=== PATIENT | female | born 1955 | race Caucasian/White ===

== ENCOUNTER 2018-12-15 22:19 | Inpatient (IN) | payer OTHER ==
[~2018-12-15] VITALS: Ht 157.5 cm; Wt 81.6 kg
[2018-12-16] MEDS ORDERED: PROZAC 20 MG20 MG (00:20)
[2018-12-16] MEDS ORDERED: XANAX 0.25 MG0.25 MG PO (00:22)
[2018-12-16] MEDS ORDERED: LEVOTHYROXINE175 MCG PO (00:25)
[2018-12-16] MEDS ORDERED: PROTONIX40 M1 PO (00:26)
[2018-12-16] MEDS ORDERED: LIPITOR10 MG PO (00:28)
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
[2018-12-16 00:43] VITALS: BP 154/94
[2018-12-16 07:55] VITALS: BP 134/93
[2018-12-16 11:33] VITALS: BP 134/93
--- NOTE | 2018-12-16 11:44 | NUR ---
ASSUMED CARE AT 0715 THIS MORNING. PT. UP ON UNIT FOR MEALS. COMPLIANT WITH MEDICATIONS. SAT ON UNIT AFTER BREAKFAST. REPORTED TO OT THAT SHE WAS THINKING OF WAYS TO HARM HERSELF AFTER SHE LEFT THE HOSPITAL SETTING. SHE WAS NON-SPECIFIC. SHE STATED SHE WAS JUST THINKING ABOUT THIS. SHE THEN WENT AND LAYED DOWN IN BED AND WOULD NOT/DID NOT DISCUSS THIS FURTHER. THIS SUPERIOR COURT CLERK WENT INTO THE PT'S ROOM TO DISCUSS THIS BUT THE PT. EYES CLOSED, RESPIRATIONS EVEN. ASSUMED PT. IS ASLEEP.
[2018-12-16 22:23] VITALS: BP 143/90
[2018-12-16 23:30] VITALS: BP 143/90
--- NOTE | 2018-12-17 05:37 | NUR ---
ASSUMED CARE @ 1900. AT THAT TIME PT WAS IN BED, SNORING, EYES CLOSED. AWAKENED PT TO ASSESS AND PROVIDE 2100 MEDS @ 21:45. DENIES SI, HI AND REPORTS THAT SHE HAS A WADE AND TYLENOL 650 PROVIDED @ 22:30. WILL CONTINUE TO MONITOR.
[2018-12-17 07:40] VITALS: BP 162/111
[2018-12-17 09:23] VITALS: BP 167/102
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
--- NOTE | 2018-12-17 14:42 | NUR ---
ANNY called pt's daughter Shira Fajardo [phone] Paez present. provided an update and recomendations for D/C . Daughter provided more HX and her concerns about how her mother had lied to her about not being SI prior to her attempt, and the pending loss of her cat at home who is likely going to this week. ANNY and dght spoke after excused himself and Sw educated her on the role of therapy, medication changes, and the PHP. Dght admits that pt needs to get out, and Anny provided suggestions. Pt has a lifelong HSX of SI, and is seeking relief from her emotional pain. Anny encourage ddght to get her own support, as this behavior is not sustainable. Pt's dght seemed grateful for the report provided by and ANNY . This information is available for weekday SW to follow up.
[2018-12-17 21:00] VITALS: BP 145/92
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
[2018-12-18 15:31] VITALS: BP 157/95
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
[2018-12-18 19:43] VITALS: BP 124/85
--- NOTE | 2018-12-18 19:56 | NUR ---
ASSUMED CARE OF THE PT AT 191 PM. ALERT ET ORIENTED X 2. MAKES NEEDS KNOWN. HEART RATE REGULAR., LUNGS CLEAR BILATERALLY, RESP., EVEN, AND UNLABORED. +BS HEARD IN ALL 4 QUADRANTS. DENIES SI AND HI. DENIES ANXIETY AND DEPRESSION. DENIES A/V HALLUNICATIONS. REMAINS ON 12 MINUTE CHECKS FOR HER SAFETY.
--- NOTE | 2018-12-19 02:14 | NUR ---
THE PT HAS BEEN SLEEPING MOST OF THE NOC SHIFT. NO C/O OF PAIN DURING THE TIME. REMAINS ON 12 MINUTE CHECKS FOR HER SAFETY.
--- NOTE | 2018-12-19 04:01 | NUR ---
THE PT GOT UP AT 0330 AM AND SAT DOWN IN THE DAYROOM, THE PT CONTINUES TO HAVE A FLAT AFFECT, THIS SEAFOOD TECHNOLOGY SPECIALIST ASKED THE PT IF SHE NEEDED ANYTHING AND DENIED NEEDING ANYTHING, OFFERED WATER AND A BLANKET, WHICH SHE REFUSED.
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
--- NOTE | 2018-12-19 06:33 | NUR ---
THE PT SLEPT 10 HOURS LAST NIGHT.
[2018-12-19 07:50] VITALS: BP 130/82
--- NOTE | 2018-12-19 09:16 | NUR ---
0730: Report from noc shift, care assumed. Ambulatory in halls, gait steady, dressed neatly in clothes. To DR for a.m. meal, feeds self, appetite good, denies pain. Report having nightmares during the noc, aware they are not real but are frightening. Takes meds whole w/o difficulty.
[2018-12-19 19:29] VITALS: BP 102/59
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
--- NOTE | 2018-12-19 20:46 | NUR ---
ASSUMED CARE OF THE PT AT 1915PM. ALERT ET ORIENTED X 3. MAKES NEEDS KNOWN. WALKS WITH A STEADY GAIT. HEART RATE REGULAR, LUNGS CLEAR BILATERALLY, RESP., EVEN, AND UNLABORED. +BS HEARD IN ALL 4 QUADRANTS., STATED THAT SHE HAD A BM TODAY. DENIES ANXIETY AND DEPRESSION. DENIES A/V HALLUNICATIONS. STATED THAT SHE HAD NIGHTMARES LAST NIGHT, THE PHYSICIAN STARTED HER ON A NEW MEDICATION FOR THE NIGHTMARES. REMAINS ON 12 MINUTE CHECKS FOR HER SAFETY.
--- NOTE | 2018-12-20 03:07 | NUR ---
THE PT HAS BEEN SLEEPING MOST OF THE NOC SHIFT.
--- NOTE | 2018-12-20 05:59 | NUR ---
THE PT SLEPT 9 HOURS LAST NIGHT.
--- NOTE | 2018-12-20 09:03 | NUR ---
[id number]: Report from [facility] shift, care assumed. Ambulatory to DR, gait steady, speech clear, appropriate for age. Feeds self a.m. meal, appetite good, consumes 100%, takes meds whole w/o difficulty. Denies pain @ this time, last BM 12/19. Denies "nightmares" during the noc, continues on new HS dose of Prazosin 1mg po, no adverse reactions noted. Attending group with RT supervising. Pt cooperative with staff, and interacts with others well.
[2018-12-20 11:20] VITALS: BP 126/79
--- NOTE | 2018-12-20 11:21 | NUR ---
Patient Name: KANIKA CHURCHILL Admission Date: 12/15/18 DISCHARGE PLAN: Pt will discharge home. Care Assessment: Pt was assessed by Dr. Paez, and was diagnosed with Severe Major Depression Disorder. Level II Assessment: None Transportation: Pt will be discharge through [facility]. Special Instructions/Notes: schedule outpatient therapy service through [facility]. Pt will be seen a psychiatrist on December 25, 2018 at 10:00 am. DISCHARGE TO FACILITY: Facility: Phone: Fax: Address: [address] [place] [address] [id number] Contact Name: PCP: Pt Primary Care doctor Psychiatrist: [facility] [address] [place] [id number]
[2018-12-20] MEDS ORDERED: PRAZOSIN HCL1 MG PO (12:17)
[2018-12-20] MEDS ORDERED: CATAPRES0.1 MG PO (12:17)
[2018-12-20] MEDS ORDERED: OXCARBAZEPINE300 MG PO (12:18)
[2018-12-20] MEDS ORDERED: MOBIC7.5 M1 PO (12:18)
--- NOTE | 2018-12-21 21:24 | D ---
[facility] [place] [address] DISCHARGE SUMMARY Name: KANIKA CHURCHILL Room #: 527A-A [facility] IN M.R.#: [id number] Admission: 12/15/18 ������������������ Attend Phys: Frank Paez DO Discharge: 12/20/18 ������������������ Date of : 53 Report #: [id number] THIS REPORT FOR: //name// CC: Frank Bonilla DATE OF SERVICE: 12/20/2018 ATTENDING PHYSICIAN: Frank Paez DO. RADIAL ARM SAW OPERATOR: Frank Cano MD MEDICAL COMORBIDITIES: GERD, hypothyroidism and irritable bowel syndrome. DISCHARGE DIAGNOSES: Major depressive disorder, recurrent, severe degree and probable posttraumatic stress disorder though not widely explored this admission. DISCHARGE MEDICATIONS: As follows: Fluoxetine 60 mg oral daily, levothyroxine 175 mcg oral daily hypothyroidism , pantoprazole 40 mg oral daily GERD , atorvastatin 10 mg oral daily hyperlipidemia, prazosin 1 mg p.o. at bedtime for nightmares, Trileptal 150 mg twice daily, meloxicam 7.5 mg oral daily for arthritis and clonidine 0.2 mg p.o. bid. DISCHARGE INSTRUCTIONS: The patient will need to [facility] with a [facility]. PCP is Dr. Bonilla who practices in [place], the patient will arrange an appointment. DIET: Regular. LABORATORIES THIS ADMISSION: None. PHYSICAL EXAMINATION: VITAL SIGNS: On the day of discharge, temperature is 36.3, pulse 63, respirations 19 and BP 136/79. MUSCULOSKELETAL: Normal gait and station. MENTAL STATUS EXAMINATION: This is a well-developed, well-nourished female appearing stated age. Attention intact, concentration intact, speech is normal rate and normal tone. Thought process is linear and goal oriented. Thought content, focussed on discharge challenges ahead and future oriented. Denied auditory, visual or tactile hallucination. Denied suicidal intent or plan. Denied hopelessness or helplessness. Denied homicidal intent or plan. Memory not formally tested today. Insight is fair. Judgment is fair. [facility] [address] [place] [address] DISCHARGE SUMMARY Name: KANIKA CHURCHILL Room #: [address] [place] [address] IN M.R.#: [id number] Admission: 12/15/18 ������������������ Attend Phys: Frank Paez DO Discharge: 12/20/18 ������������������ Date of : 53 Report #: [id number] knowledge is average range. Prognosis is fair. REASON FOR ADMISSION: Suicidal ideation and suicidal gesture. HOSPITAL COURSE: The patient's mood improved. Trileptal started at 150 mg twice daily for mood stabilization. The patient was emphatic on remaining on her Prozac regimen 60 mg p.o. daily. Contact was made with her daughter and reiterated this occurs every 4-1/2 to 5 years. I had previously taken care of this patient at [facility] in 06/2014 and the reasons for admission were similar. We had tried to get the patient in a PHP at time of discharge; however, her insurance did not have one they anticipated in. prognosis: guarded ��������������������������������������������� <ELECTRONICALLY SIGNED> ���������������������������������������� By: Frank Paez, ��������������������������������������������� 12/21/18 [id number] Frank Paez, /nt
== END 2018-12-20 12:40 | disposition home or self-care (01) | DRG 885 ==
LOC: SBH 22:19
PROVIDERS: ADMIT Psychiatry & Neurology Psychiatry
DX: F33.2 Major depressive disorder, recurrent severe without psychotic features (principal); K21.9 Gastro-esophageal reflux disease without esophagitis; E03.9 Hypothyroidism, unspecified; F43.12 Post-traumatic stress disorder, chronic; K58.9 Irritable bowel syndrome, unspecified; E78.5 Hyperlipidemia, unspecified; M51.36 Other intervertebral disc degeneration, lumbar region; F17.210 Nicotine dependence, cigarettes, uncomplicated; Z85.41 Personal history of malignant neoplasm of cervix uteri; Z91.5 Personal history of self-harm; Z90.49 Acquired absence of other specified parts of digestive tract; Z98.891 History of uterine scar from previous surgery; Z90.710 Acquired absence of both cervix and uterus; Z79.899 Other long term (current) drug therapy; Z88.5 Allergy status to narcotic agent; Z88.8 Allergy status to other drugs, medicaments and biological substances
CPT/HCPCS: 10880; 20051